=== PATIENT | male | born 1940 | race Caucasian/White ===

== ENCOUNTER 2016-12-23 13:57 | Inpatient (IN) | payer MEDICARE ==
[~2016-12-23] VITALS: Ht 172.7 cm; Wt 93.9 kg
[2016-12-23] MEDS ORDERED: SODIUM CHLORIDE 0.9% 1,000 ML IV ONE (14:49)
[2016-12-23] MEDS ORDERED: VANCOMYCIN PER PHARMACY MC ONE (15:00)
[2016-12-23] MEDS ORDERED: SODIUM CHLORIDE FLUSH 10ML SYR IVF ONE (15:00)
[2016-12-23 15:25] LABS: HEMATOCRIT 46.6 % (39.2-51.8); HEMOGLOBIN 15.2 g/dL (13.7-18.0); WHITE BLOOD COUNT 8.7 x10^3/uL (3.4-10)
[2016-12-23] MEDS ORDERED: VANCOMYCIN 1,900 MG in SODIUM CHLORIDE 0.9% 250 ML IV ONE (15:30)
[2016-12-23 15:34] LABS: ASPARTATE AMINO TRANSFERASE 21 U/L (15-37); BLOOD UREA NITROGEN 19 mg/dL (7-18)
[2016-12-23] MEDS ORDERED: YEAS680T PO (16:51)
[2016-12-23] MEDS ORDERED: ASPI-496 PO (16:51)
[2016-12-23] MEDS ORDERED: ATOR80TA PO (16:52)
[2016-12-23] MEDS ORDERED: HYDR25TA11 PO (16:52)
[2016-12-23] MEDS ORDERED: METO25TA35 PO (16:52)
[2016-12-23] MEDS ORDERED: CLOP75TA PO (16:52)
[2016-12-23] MEDS ORDERED: CITA20TA5 PO (16:52)
[2016-12-23] MEDS ORDERED: SODIUM CHLORIDE FLUSH 10ML SYR IVF PRN (17:30)
[2016-12-23] MEDS ORDERED: HYDROcodone/APAP 5/325 TABLET PO PRN (18:00)
[2016-12-23] MEDS ORDERED: ONDANSETRON ODT 4 MG PO PRN (18:00)
[2016-12-23] MEDS ORDERED: LABETALOL 5MG/ML, 20ML IVPush PRN (18:00)
[2016-12-23] MEDS ORDERED: POLYETHYLENE GLYCOL 17 GM PACKET PO PRN (18:00)
[2016-12-23] MEDS ORDERED: ONDANSETRON 2MG/ML, 2ML IVPush PRN (18:00)
[2016-12-23] MEDS: LINEZOLID PMX 600MG/300ML 300 ML IV SCH (20:25)
[2016-12-23] MEDS: ATORVASTATIN 80 MG TABLET PO SCH (20:25)
[2016-12-23] MEDS: ENOXAPARIN 40 MG/0.4 ML SQ SCH (20:26)
[2016-12-23 20:37] VITALS: BP 149/93
[2016-12-24 00:33] VITALS: BP 117/76
[2016-12-24] MEDS ORDERED: FLU VACC QS2017-18 (36MOS+) UP/PF 0.5 ML IM-VACC ONE (02:00)
[2016-12-24] MEDS ORDERED: PNEUMOCOCCAL 23 VACCINE IM-VACC ONE (02:00)
[2016-12-24] MEDS: LINEZOLID PMX 600MG/300ML 300 ML IV SCH ×3 (05:30→19:32)
[2016-12-24 07:25] VITALS: BP 107/75
[2016-12-24] MEDS: SENNA/DOCUSATE TABLET PO SCH (09:00)
[2016-12-24] MEDS: CITALOPRAM 20 MG TABLET PO SCH (09:10)
[2016-12-24] MEDS: ASPIRIN 81 MG TABLET EC PO SCH (09:10)
[2016-12-24] MEDS: METOPROLOL TARTRATE 25 MG TABLET PO SCH (09:10)
[2016-12-24] MEDS: CLOPIDOGREL 75 MG TABLET PO SCH (09:10)
[2016-12-24 10:15] LABS: HEMOGLOBIN 13.9 g/dL (13.7-18.0); WHITE BLOOD COUNT 8.4 x10^3/uL (3.4-10)
[2016-12-24 10:26] LABS: ASPARTATE AMINO TRANSFERASE 21 U/L (15-37); BLOOD UREA NITROGEN 15 mg/dL (7-18)
[2016-12-24 14:35] VITALS: BP 108/67
[2016-12-24 19:52] VITALS: BP 109/69
[2016-12-24] MEDS: ATORVASTATIN 80 MG TABLET PO SCH (21:46)
[2016-12-24] MEDS: ENOXAPARIN 40 MG/0.4 ML SQ SCH (21:46)
[2016-12-24] MEDS: SILVER SULF. CRM 1%, 400GM TP SCH (21:46)
[2016-12-24] MEDS: DIPHENHYDRAMINE 25 MG CAPSULE PO PRN (22:19)
[2016-12-25 03:31] VITALS: BP 106/62
[2016-12-25] MEDS: LINEZOLID PMX 600MG/300ML 300 ML IV SCH ×2 (05:45→18:37)
[2016-12-25 06:04] LABS: HEMATOCRIT 42.7 % (39.2-51.8); WHITE BLOOD COUNT 7.3 x10^3/uL (3.4-10)
[2016-12-25 06:28] LABS: BLOOD UREA NITROGEN 15 mg/dL (7-18)
[2016-12-25 08:50] VITALS: BP 115/70
[2016-12-25] MEDS: SENNA/DOCUSATE TABLET PO SCH (09:00)
[2016-12-25] MEDS: CLOPIDOGREL 75 MG TABLET PO SCH (11:02)
[2016-12-25] MEDS: CITALOPRAM 20 MG TABLET PO SCH (11:02)
[2016-12-25] MEDS: METOPROLOL TARTRATE 25 MG TABLET PO SCH (11:02)
[2016-12-25] MEDS: ASPIRIN 81 MG TABLET EC PO SCH (11:02)
[2016-12-25] MEDS: SILVER SULF. CRM 1%, 400GM TP SCH (11:03)
[2016-12-25 14:03] VITALS: BP 94/60
[2016-12-25 19:50] VITALS: BP 100/66
[2016-12-25] MEDS: ENOXAPARIN 40 MG/0.4 ML SQ SCH (21:38)
[2016-12-25] MEDS: DIPHENHYDRAMINE 25 MG CAPSULE PO PRN (21:38)
[2016-12-25] MEDS: ATORVASTATIN 80 MG TABLET PO SCH (21:38)
[2016-12-26 02:45] VITALS: BP 106/64
[2016-12-26] MEDS: LINEZOLID PMX 600MG/300ML 300 ML IV SCH (06:04)
[2016-12-26 07:27] VITALS: BP 102/66
[2016-12-26] MEDS: CLOPIDOGREL 75 MG TABLET PO SCH (08:03)
[2016-12-26] MEDS: ASPIRIN 81 MG TABLET EC PO SCH (08:03)
[2016-12-26] MEDS: SENNA/DOCUSATE TABLET PO SCH (08:03)
[2016-12-26] MEDS: CITALOPRAM 20 MG TABLET PO SCH (08:03)
[2016-12-26] MEDS: METOPROLOL TARTRATE 25 MG TABLET PO SCH (08:03)
[2016-12-26 13:33] VITALS: BP 105/68
[2016-12-26] MEDS: CEFAZOLIN PMX 2GM/50ML 50 ML IV SCH ×2 (14:58→22:17)
[2016-12-26 20:05] VITALS: BP 109/73
[2016-12-26] MEDS: ENOXAPARIN 40 MG/0.4 ML SQ SCH (22:17)
[2016-12-26] MEDS: ATORVASTATIN 80 MG TABLET PO SCH (22:17)
[2016-12-27 03:40] VITALS: BP 105/53
[2016-12-27 05:27] LABS: HEMATOCRIT 40.8 % (39.2-51.8); HEMOGLOBIN 13.4 g/dL (13.7-18.0); WHITE BLOOD COUNT 7.7 x10^3/uL (3.4-10)
[2016-12-27 05:48] LABS: ASPARTATE AMINO TRANSFERASE 19 U/L (15-37); BLOOD UREA NITROGEN 16 mg/dL (7-18)
[2016-12-27] MEDS: CEFAZOLIN PMX 2GM/50ML 50 ML IV SCH ×3 (06:05→22:24)
[2016-12-27 06:47] VITALS: BP 127/70
[2016-12-27] MEDS: ASPIRIN 81 MG TABLET EC PO SCH (08:15)
[2016-12-27] MEDS: CITALOPRAM 20 MG TABLET PO SCH (08:15)
[2016-12-27] MEDS: SENNA/DOCUSATE TABLET PO SCH (08:16)
[2016-12-27] MEDS: METOPROLOL TARTRATE 25 MG TABLET PO SCH (08:16)
[2016-12-27] MEDS: CLOPIDOGREL 75 MG TABLET PO SCH (08:16)
[2016-12-27 13:19] VITALS: BP 124/86
[2016-12-27] MEDS: DIPHENHYDRAMINE 25 MG CAPSULE PO PRN ×2 (13:50→20:35)
[2016-12-27 18:44] VITALS: BP 111/73
[2016-12-27] MEDS: ATORVASTATIN 80 MG TABLET PO SCH (20:26)
[2016-12-27] MEDS: ENOXAPARIN 40 MG/0.4 ML SQ SCH (20:27)
[2016-12-28 02:29] VITALS: BP 122/82
[2016-12-28 05:51] LABS: HEMATOCRIT 42.1 % (39.2-51.8); HEMOGLOBIN 13.7 g/dL (13.7-18.0); WHITE BLOOD COUNT 7.4 x10^3/uL (3.4-10)
[2016-12-28 06:00] LABS: BLOOD UREA NITROGEN 18 mg/dL (7-18)
[2016-12-28] MEDS: CEFAZOLIN PMX 2GM/50ML 50 ML IV SCH ×3 (06:19→22:04)
[2016-12-28 06:59] VITALS: BP 114/81
[2016-12-28] MEDS: ASPIRIN 81 MG TABLET EC PO SCH (08:36)
[2016-12-28] MEDS: CITALOPRAM 20 MG TABLET PO SCH (08:36)
[2016-12-28] MEDS: METOPROLOL TARTRATE 25 MG TABLET PO SCH (08:36)
[2016-12-28] MEDS: CLOPIDOGREL 75 MG TABLET PO SCH (08:37)
[2016-12-28] MEDS: SENNA/DOCUSATE TABLET PO SCH (08:37)
[2016-12-28 13:29] VITALS: BP 115/74
[2016-12-28 19:27] VITALS: BP 135/88
[2016-12-28] MEDS: ATORVASTATIN 80 MG TABLET PO SCH (22:04)
[2016-12-28] MEDS: ENOXAPARIN 40 MG/0.4 ML SQ SCH (22:04)
[2016-12-28] MEDS: DIPHENHYDRAMINE 25 MG CAPSULE PO PRN (22:11)
[2016-12-29 01:38] VITALS: BP 115/74
[2016-12-29 05:58] LABS: HEMATOCRIT 42.8 % (39.2-51.8); HEMOGLOBIN 14.1 g/dL (13.7-18.0); WHITE BLOOD COUNT 6.7 x10^3/uL (3.4-10)
[2016-12-29 06:05] LABS: BLOOD UREA NITROGEN 21 mg/dL (7-18)
[2016-12-29] MEDS: CEFAZOLIN PMX 2GM/50ML 50 ML IV SCH ×3 (06:19→22:48)
[2016-12-29 07:11] VITALS: BP 104/70
[2016-12-29] MEDS: SENNA/DOCUSATE TABLET PO SCH (09:00)
[2016-12-29] MEDS: ASPIRIN 81 MG TABLET EC PO SCH (09:25)
[2016-12-29] MEDS: CITALOPRAM 20 MG TABLET PO SCH (09:25)
[2016-12-29] MEDS: CLOPIDOGREL 75 MG TABLET PO SCH (09:26)
[2016-12-29] MEDS: METOPROLOL TARTRATE 25 MG TABLET PO SCH (09:26)
[2016-12-29 15:31] VITALS: BP 130/70
[2016-12-29 19:16] VITALS: BP 117/78
[2016-12-29] MEDS: ATORVASTATIN 80 MG TABLET PO SCH (22:48)
[2016-12-29] MEDS: ENOXAPARIN 40 MG/0.4 ML SQ SCH (22:48)
[2016-12-30 02:08] VITALS: BP 103/68
[2016-12-30 06:25] LABS: HEMATOCRIT 41.9 % (39.2-51.8); HEMOGLOBIN 13.9 g/dL (13.7-18.0); WHITE BLOOD COUNT 7.9 x10^3/uL (3.4-10)
[2016-12-30 06:49] LABS: ASPARTATE AMINO TRANSFERASE 23 U/L (15-37); BLOOD UREA NITROGEN 18 mg/dL (7-18)
[2016-12-30 06:55] VITALS: BP 103/71
[2016-12-30] MEDS ORDERED: AMOX1TAB64 PO (07:31)
[2016-12-30] MEDS: CITALOPRAM 20 MG TABLET PO SCH (07:34)
[2016-12-30] MEDS: CLOPIDOGREL 75 MG TABLET PO SCH (07:34)
[2016-12-30] MEDS: METOPROLOL TARTRATE 25 MG TABLET PO SCH (07:34)
[2016-12-30] MEDS: CEFAZOLIN PMX 2GM/50ML 50 ML IV SCH ×2 (07:34→15:34)
[2016-12-30] MEDS: ASPIRIN 81 MG TABLET EC PO SCH (07:34)
[2016-12-30] MEDS: SENNA/DOCUSATE TABLET PO SCH (08:19)
[2016-12-30 14:51] VITALS: BP 113/80
== END 2016-12-30 18:49 | disposition home health service (06) | DRG 602 ==
LOC: ED 17:01 → EDIP 17:02 → 3NE 18:24
PROVIDERS: ADMIT Hospitalist; ATTEND Hospitalist
DX: L03.115 Cellulitis of right lower limb (principal); E43 Unspecified severe protein-calorie malnutrition; L03.116 Cellulitis of left lower limb; E66.01 Morbid (severe) obesity due to excess calories; E78.00 Pure hypercholesterolemia, unspecified; I10 Essential (primary) hypertension; Z96.641 Presence of right artificial hip joint; B95.61 Methicillin susceptible Staphylococcus aureus infection as the cause of diseases classified elsewhere; I25.10 Atherosclerotic heart disease of native coronary artery without angina pectoris; Z85.46 Personal history of malignant neoplasm of prostate; Z86.14 Personal history of Methicillin resistant Staphylococcus aureus infection; Z68.31 Body mass index [BMI] 31.0-31.9, adult; Z98.1 Arthrodesis status; Z23 Encounter for immunization
CPT/HCPCS: 36415; 71010; 80048; 80053; 81003; 82040; 83605; 85025; 87040; 87070; 87075; 87077; 87186; 87205; 90686; 90732; 93306; 93922; 93970; 96365; J0690; J1650; J2020; J2405; J3370; 29580-GP; J7030; J7050; Q0163

== ENCOUNTER → 2017-01-09 | Outpatient (CLI) | payer MEDICARE ==
[~2017-01-09] MED LIST: AMOX1TAB64 PO; ASPI-496 PO; ATOR80TA PO; CITA20TA5 PO; CLOP75TA PO; HYDR25TA11 PO; METO25TA35 PO; YEAS680T PO
== END | disposition home or self-care (01) ==
LOC: WOUND 07:45
PROVIDERS: ATTEND Podiatrist Foot & Ankle Surgery
DX: I83.012 Varicose veins of right lower extremity with ulcer of calf (principal); L97.211 Non-pressure chronic ulcer of right calf limited to breakdown of skin; L97.821 Non-pressure chronic ulcer of other part of left lower leg limited to breakdown of skin; I25.10 Atherosclerotic heart disease of native coronary artery without angina pectoris; Z86.14 Personal history of Methicillin resistant Staphylococcus aureus infection; E66.01 Morbid (severe) obesity due to excess calories; Z68.31 Body mass index [BMI] 31.0-31.9, adult; Z85.46 Personal history of malignant neoplasm of prostate; E78.00 Pure hypercholesterolemia, unspecified
CPT/HCPCS: 29581; G0463; WOU0463

== ENCOUNTER → 2017-01-23 | Outpatient (CLI) | payer MEDICARE | END | disposition home or self-care (01) | LOC: WOUND 14:00 | PROVIDERS: ATTEND Podiatrist Foot & Ankle Surgery | DX: I87.2 Venous insufficiency (chronic) (peripheral) (principal); L97.811 Non-pressure chronic ulcer of other part of right lower leg limited to breakdown of skin; L97.821 Non-pressure chronic ulcer of other part of left lower leg limited to breakdown of skin; I25.10 Atherosclerotic heart disease of native coronary artery without angina pectoris; E78.00 Pure hypercholesterolemia, unspecified; I10 Essential (primary) hypertension; E66.01 Morbid (severe) obesity due to excess calories; I25.2 Old myocardial infarction; F12.10 Cannabis abuse, uncomplicated; Z68.31 Body mass index [BMI] 31.0-31.9, adult; Z85.46 Personal history of malignant neoplasm of prostate; Z96.641 Presence of right artificial hip joint; Z98.1 Arthrodesis status | CPT/HCPCS: 29581 ==

== ENCOUNTER → 2017-01-31 | Outpatient (CLI) | payer MEDICARE | END | disposition home or self-care (01) | LOC: WOUND 10:00 | PROVIDERS: ATTEND Family Medicine | DX: I87.2 Venous insufficiency (chronic) (peripheral) (principal); L97.811 Non-pressure chronic ulcer of other part of right lower leg limited to breakdown of skin; I25.10 Atherosclerotic heart disease of native coronary artery without angina pectoris; E66.01 Morbid (severe) obesity due to excess calories; I10 Essential (primary) hypertension; I25.2 Old myocardial infarction; Z96.641 Presence of right artificial hip joint; E78.00 Pure hypercholesterolemia, unspecified; Z86.14 Personal history of Methicillin resistant Staphylococcus aureus infection; E43 Unspecified severe protein-calorie malnutrition; L03.116 Cellulitis of left lower limb; F12.10 Cannabis abuse, uncomplicated; Z68.31 Body mass index [BMI] 31.0-31.9, adult; Z85.46 Personal history of malignant neoplasm of prostate | CPT/HCPCS: 99213; G0463; WOU0463 ==

== ENCOUNTER → 2017-02-21 | Outpatient (CLI) | payer MEDICARE | END | disposition home or self-care (01) | LOC: CVU 07:56 | PROVIDERS: ATTEND Nurse Practitioner Primary Care | DX: I70.203 Unspecified atherosclerosis of native arteries of extremities, bilateral legs (principal); L03.116 Cellulitis of left lower limb; L03.115 Cellulitis of right lower limb; I25.10 Atherosclerotic heart disease of native coronary artery without angina pectoris; I25.2 Old myocardial infarction; Z85.46 Personal history of malignant neoplasm of prostate; Z95.5 Presence of coronary angioplasty implant and graft | CPT/HCPCS: 93922; 93925 ==

== ENCOUNTER 2018-05-08 12:34 | Inpatient (IN) | payer MEDICARE ==
[~2018-05-08] VITALS: Ht 175.3 cm; Wt 106.2 kg
[~2018-05-08 12:34] MED LIST changes: -CITA20TA5 PO; +CITA20TA6 PO; +ERGO500017 PO; +POLY17PO5 PO; -YEAS680T PO; +YEAS680T2 PO
[2018-05-08] MEDS ORDERED: SODIUM CHLORIDE FLUSH 10ML SYR IVF ONE (13:30)
[2018-05-08 13:55] LABS: BASOPHILS # (AUTO) 0.01 x10^3/uL (0-0.1); BASOPHILS % (AUTO) 0 % (0-1); EOSINOPHILS # (AUTO) 0.39 x10^3/uL (0-0.4); EOSINOPHILS % (AUTO) 3 % (1-7); LYMPHOCYTES % (AUTO) 2 % (22-44); MD NO; MEAN CORPUSCULAR HEMOGLOBIN 26.2 pg (27.5-34.5); MEAN CORPUSCULAR HGB CONC 32.8 g/dL (33.2-36.2); MEAN CORPUSCULAR VOLUME 79.7 fL (81-97); MEAN PLATELET VOLUME 8.7 fL (7.4-10.4); MONOCYTES # (AUTO) 0.94 x10^3/uL (0.2-0.8); MONOCYTES % (AUTO) 8 % (2-9); NEUTROPHILS # (AUTO) 10.35 x10^3/uL (1.8-6.8); NEUTROPHILS % (AUTO) 87 % (42-75); PLATELET COUNT 274 x10^3/uL (130-400); RED BLOOD COUNT 3.75 x10^6/uL (4.38-5.82); RED CELL DISTRIBUTION WIDTH 21.4 % (9.4-14.8)
[2018-05-08 14:07] LABS: INTERNATIONAL NORMALIZED RATIO 1.28 (0.93-1.1); PROTHROMBIN TIME 13.4 Seconds (9.6-11.5)
[2018-05-08 14:08] LABS: ALBUMIN 2.1 g/dL (3.4-5.0); ANION GAP 8 mmol/L (5-15); CALCIUM 9.8 mg/dL (8.5-10.1); CHLORIDE 104 mmol/L (98-107)
[2018-05-08 14:13] LABS: ALANINE AMINOTRANSFERASE 80 U/L (12-78); ALKALINE PHOSPHATASE 314 U/L (45-117); BILIRUBIN,TOTAL 0.6 mg/dL (0.2-1.0); CREATININE 1.33 mg/dL (0.7-1.3); TOTAL PROTEIN 7.8 g/dL (6.4-8.2); TROPONIN I < 0.015 ng/mL (0.000-0.045)
[2018-05-08 14:26] LABS: ACETAMINOPHEN < 2 mcg/mL (10-30); SALICYLATE LEVEL < 1.7 mg/dL (2.8-20.0)
[2018-05-08] MEDS ORDERED: ACETAMINOPHEN 500 MG TABLET PO ONE (14:30)
[2018-05-08] MEDS ORDERED: ACETAMINOPHEN 500 MG TABLET ONE (14:32)
[2018-05-08 17:25] LABS: MICROSCOPIC INDICATED
[2018-05-08 17:39] LABS: CULTURE INDICATED? NO
[2018-05-08] MEDS ORDERED: SODIUM CHLORIDE FLUSH 10ML SYR IVF PRN (18:30)
[2018-05-08] MEDS ORDERED: CITA20TA9 PO (19:14)
--- NOTE | 2018-05-08 19:14 | NUR ---
SBAR TO CRISTIANO CONTRERAS VIA TELPHONE
[2018-05-08] MEDS ORDERED: POLYETHYLENE GLYCOL 17 GM PACKET PO PRN (19:30)
[2018-05-08] MEDS ORDERED: BISACODYL 10 MG SUPP PR PRN (19:30)
[2018-05-08] MEDS ORDERED: ONDANSETRON ODT 4 MG PO PRN (19:30)
[2018-05-08 19:31] LABS: HCT (SEDRATE) 28.1 % (39.2-51.8)
--- NOTE | 2018-05-08 19:38 | NUR ---
PT'S BLOOD PRESSURE 84/49 HOSPITALIST AWARE. [facility] NUMNER [phone] LEA
[2018-05-08 19:48] LABS: % IRON SATURATION 10 % (20-55); IRON LEVEL 19 mcg/dL (65-175); TOTAL IRON BINDING CAPACITY 187 mcg/dL (250-450)
[2018-05-08] MEDS ORDERED: SODIUM CHLORIDE 0.9% 1,000ML IVBOLUS ONE (20:00)
[2018-05-08] MEDS ORDERED: VANCOMYCIN PER PHARMACY MC PRN (20:00)
[2018-05-08 20:02] LABS: HIGH-SENSITIVITY CRP > 19.00 mg/dL (0.02-0.30)
[2018-05-08] MEDS ORDERED: PIPERACILLIN/TAZO/PMX 3.375GM 50 ML ONE (20:33)
[2018-05-08] MEDS: PIPERACILLIN/TAZO/PMX 3.375GM 50 ML IV SCH (20:37)
--- NOTE | 2018-05-08 20:37 | NUR ---
PT HAS BEEN UPGRADED TO ICU
--- NOTE | 2018-05-08 20:37 | NUR ---
BOTH BLOOD CULTURES DRAWN BEFORE ABX GIVEN
--- NOTE | 2018-05-08 21:12 | NUR ---
PT BACK FROM CT. PT RESTING. NO ACUTE DISTRESS NOTED. WILL CONTINUE TO MONITOR.
[2018-05-08] MEDS ORDERED: ONDANSETRON ODT 4 MG ONE (21:17)
[2018-05-08] MEDS: SODIUM CHLORIDE 0.9% 1,000 ML IV SCH (21:18)
[2018-05-08] MEDS ORDERED: PHARMACOKINETIC MONITORING MC PRN (22:30)
[2018-05-08] MEDS ORDERED: VANCOMYCIN 1,800 MG in SODIUM CHLORIDE 0.9% 250 ML IV ONE (22:30)
[2018-05-08 22:49] VITALS: BP 113/61
[2018-05-08] MEDS: HEPARIN 5,000 UNITS/ML, 1ML SQ SCH (23:33)
[2018-05-09] MEDS: ACETAMINOPHEN 325 MG TABLET PO PRN ×3 (01:18→20:06)
[2018-05-09] MEDS: PIPERACILLIN/TAZO/PMX 3.375GM 50 ML IV SCH ×4 (01:32→20:05)
[2018-05-09] MEDS: SODIUM CHLORIDE 0.9% 1,000 ML IV SCH ×3 (01:32→20:06)
[2018-05-09] MEDS ORDERED: OMNIPAQUE 350 MG/ML, 100ML BOTTLE ONE (02:25)
[2018-05-09] MEDS ORDERED: NOREPINEPHRINE 4 MG in SODIUM CHLORIDE 0.9% 246 ML IV PRN (03:00)
[2018-05-09] MEDS ORDERED: SODIUM CHLORIDE 0.9% 1,000ML IVBOLUS ONE ×2 (03:00)
[2018-05-09 04:52] LABS: BASOPHILS # (AUTO) 0.01 x10^3/uL (0-0.1); BASOPHILS % (AUTO) 0 % (0-1); EOSINOPHILS # (AUTO) 0.19 x10^3/uL (0-0.4); EOSINOPHILS % (AUTO) 2 % (1-7); LYMPHOCYTES # (AUTO) 0.19 x10^3/uL (1-3.4); LYMPHOCYTES % (AUTO) 2 % (22-44); MD NO; MEAN CORPUSCULAR HEMOGLOBIN 26.3 pg (27.5-34.5); MEAN CORPUSCULAR HGB CONC 32.6 g/dL (33.2-36.2); MEAN CORPUSCULAR VOLUME 80.8 fL (81-97); MEAN PLATELET VOLUME 8.3 fL (7.4-10.4); MONOCYTES % (AUTO) 9 % (2-9); NEUTROPHILS # (AUTO) 11.02 x10^3/uL (1.8-6.8); NEUTROPHILS % (AUTO) 88 % (42-75); PLATELET COUNT 219 x10^3/uL (130-400); RED BLOOD COUNT 3.03 x10^6/uL (4.38-5.82); RED CELL DISTRIBUTION WIDTH 21.6 % (9.4-14.8)
[2018-05-09 04:59] LABS: ALANINE AMINOTRANSFERASE 46 U/L (12-78); ALBUMIN 1.6 g/dL (3.4-5.0); ANION GAP 7 mmol/L (5-15); CALCIUM 8.4 mg/dL (8.5-10.1); CHLORIDE 112 mmol/L (98-107); CREATININE 1.03 mg/dL (0.7-1.3)
[2018-05-09 05:02] LABS: ALKALINE PHOSPHATASE 212 U/L (45-117); TOTAL PROTEIN 6.1 g/dL (6.4-8.2)
[2018-05-09 05:11] LABS: RAPID INFLUENZA A Negative (Negative); RAPID INFLUENZA B Negative (Negative)
[2018-05-09] MEDS: SENNA/DOCUSATE TABLET PO SCH (08:44)
[2018-05-09] MEDS: HEPARIN 5,000 UNITS/ML, 1ML SQ SCH ×2 (08:44→16:57)
[2018-05-09] MEDS ORDERED: TEMPLATE NON-FORMULARY MED. (Clopidogrel Bisulfate** (Clopidogrel**) 75 MG) PO SCH (09:00)
[2018-05-09] MEDS ORDERED: CITALOPRAM 20 MG TABLET PO SCH (09:00)
[2018-05-09] MEDS ORDERED: TEMPLATE NON-FORMULARY MED. (Aspirin** (Aspir 81**) 81 MG) PO SCH (09:00)
[2018-05-09] MEDS ORDERED: METOPROLOL TARTRATE 25 MG TABLET PO SCH (09:00)
[2018-05-09] MEDS ORDERED: ERGOCALCIFEROL 50,000 UNIT CAPSULE PO SCH (09:00)
[2018-05-09 10:56] LABS: CLOSTRIDIUM DIFFICILE ANTIGEN NEGATIVE; CLOSTRIDIUM DIFFICILE TOXIN NEGATIVE (Negative)
[2018-05-09] MEDS: VANCOMYCIN 1,800 MG in SODIUM CHLORIDE 0.9% 250 ML IV SCH (17:46)
[2018-05-09 19:53] VITALS: BP 106/78
[2018-05-09] MEDS ORDERED: IBUPROFEN 200 MG TABLET PO ONE (23:00)
[2018-05-10 00:31] VITALS: BP 95/59
[2018-05-10] MEDS: HEPARIN 5,000 UNITS/ML, 1ML SQ SCH ×3 (01:36→19:48)
[2018-05-10] MEDS: PIPERACILLIN/TAZO/PMX 3.375GM 50 ML IV SCH ×4 (01:36→19:53)
[2018-05-10 03:31] VITALS: BP 94/65
[2018-05-10] MEDS: SODIUM CHLORIDE 0.9% 1,000 ML IV SCH ×2 (05:10→08:45)
[2018-05-10 08:30] LABS: MEAN CORPUSCULAR HEMOGLOBIN 25.9 pg (27.5-34.5); MEAN CORPUSCULAR VOLUME 80.9 fL (81-97); MEAN PLATELET VOLUME 8.4 fL (7.4-10.4); PLATELET COUNT 192 x10^3/uL (130-400); RED BLOOD COUNT 3.04 x10^6/uL (4.38-5.82); RED CELL DISTRIBUTION WIDTH 21.8 % (9.4-14.8)
[2018-05-10 08:32] LABS: ALBUMIN 1.5 g/dL (3.4-5.0); ANION GAP 7 mmol/L (5-15); CALCIUM 8.9 mg/dL (8.5-10.1); CHLORIDE 111 mmol/L (98-107)
[2018-05-10 08:39] LABS: ALANINE AMINOTRANSFERASE 46 U/L (12-78); ALKALINE PHOSPHATASE 232 U/L (45-117); BILIRUBIN,TOTAL 1.1 mg/dL (0.2-1.0); CREATININE 1.03 mg/dL (0.7-1.3); TOTAL PROTEIN 5.8 g/dL (6.4-8.2)
[2018-05-10] MEDS: SENNA/DOCUSATE TABLET PO SCH (09:00)
[2018-05-10] MEDS ORDERED: ALBUMIN HUMAN 25% 100 ML IV SCH (09:00)
[2018-05-10 09:06] LABS: BASOPHILS % (AUTO) 0 % (0-1); EOSINOPHILS # (AUTO) 0.77 x10^3/uL (0-0.4); EOSINOPHILS % (AUTO) 6 % (1-7); LYMPHOCYTES # (AUTO) 0.14 x10^3/uL (1-3.4); LYMPHOCYTES % (AUTO) 1 % (22-44); MD SCAN; MONOCYTES # (AUTO) 0.69 x10^3/uL (0.2-0.8); MONOCYTES % (AUTO) 6 % (2-9); NEUTROPHILS # (AUTO) 10.91 x10^3/uL (1.8-6.8); NEUTROPHILS % (AUTO) 87 % (42-75)
[2018-05-10] MEDS: ALBUMIN HUMAN 25% 100 ML IV SCH ×3 (09:36→19:48)
[2018-05-10] MEDS: ACETAMINOPHEN 325 MG TABLET PO PRN ×2 (12:04→21:07)
[2018-05-10] MEDS: VANCOMYCIN 1,800 MG in SODIUM CHLORIDE 0.9% 250 ML IV SCH (12:05)
[2018-05-10 21:05] VITALS: BP 113/83
[2018-05-11] MEDS: HEPARIN 5,000 UNITS/ML, 1ML SQ SCH ×3 (01:00→16:27)
[2018-05-11 01:35] VITALS: BP 95/57
[2018-05-11] MEDS: PIPERACILLIN/TAZO/PMX 3.375GM 50 ML IV SCH ×4 (02:22→22:06)
[2018-05-11] MEDS: ALBUMIN HUMAN 25% 100 ML IV SCH ×3 (03:03→18:11)
[2018-05-11] MEDS: VANCOMYCIN 1,800 MG in SODIUM CHLORIDE 0.9% 250 ML IV SCH ×2 (06:00→12:33)
[2018-05-11 07:05] VITALS: BP 127/77
[2018-05-11] MEDS: SENNA/DOCUSATE TABLET PO SCH (09:00)
[2018-05-11] MEDS ORDERED: LIDOCAINE-MPF 1%, 5ML ONE (09:20)
[2018-05-11] MEDS ORDERED: FENTANYL PF 100 MCG/2ML ONE ×2 (09:24)
[2018-05-11] MEDS ORDERED: NALOXONE 1 MG/ML, 2ML ONE (09:25)
[2018-05-11] MEDS ORDERED: MIDAZOLAM 1 MG/ML, 5ML ONE (09:25)
[2018-05-11] MEDS ORDERED: FLUMAZENIL 0.1 MG/1 ML, 5ML ONE (09:25)
[2018-05-11 10:22] VITALS: BP 132/82
[2018-05-11] MEDS: SODIUM CHLORIDE 0.9% 1,000 ML IV SCH (10:28)
[2018-05-11] MEDS: MORPHINE SULFATE 4 MG/ML, 1ML IVPush PRN ×2 (10:57→14:46)
[2018-05-11 15:22] VITALS: BP 141/80
[2018-05-11 19:10] VITALS: BP 151/67
[2018-05-11] MEDS ORDERED: ACETAMINOPHEN 1,000 MG/100 ML IV IVPB ONE (22:00)
[2018-05-11] MEDS ORDERED: ACETAMINOPHEN 100 ML IVPB ONE (22:00)
[2018-05-12 01:15] VITALS: BP 104/66
[2018-05-12] MEDS: HEPARIN 5,000 UNITS/ML, 1ML SQ SCH ×2 (01:23→08:27)
[2018-05-12] MEDS: ALBUMIN HUMAN 25% 100 ML IV SCH (03:00)
[2018-05-12] MEDS: MORPHINE SULFATE 4 MG/ML, 1ML IVPush PRN ×6 (03:00→19:28)
[2018-05-12] MEDS: SODIUM CHLORIDE 0.9% 1,000 ML IV SCH (03:00)
[2018-05-12] MEDS: PIPERACILLIN/TAZO/PMX 3.375GM 50 ML IV SCH ×2 (04:00→10:30)
[2018-05-12 05:53] LABS: MEAN CORPUSCULAR HEMOGLOBIN 25.4 pg (27.5-34.5); MEAN CORPUSCULAR HGB CONC 31.9 g/dL (33.2-36.2); MEAN CORPUSCULAR VOLUME 79.7 fL (81-97); MEAN PLATELET VOLUME 8.6 fL (7.4-10.4); PLATELET COUNT 172 x10^3/uL (130-400); RED BLOOD COUNT 2.78 x10^6/uL (4.38-5.82); RED CELL DISTRIBUTION WIDTH 21.2 % (9.4-14.8)
[2018-05-12 06:07] LABS: ANION GAP 10 mmol/L (5-15); CALCIUM 9.6 mg/dL (8.5-10.1); CHLORIDE 115 mmol/L (98-107)
[2018-05-12 06:09] LABS: CREATININE 1.09 mg/dL (0.7-1.3)
[2018-05-12 06:20] LABS: BASOPHILS % (AUTO) 0 % (0-1); EOSINOPHILS # (AUTO) 0.18 x10^3/uL (0-0.4); EOSINOPHILS % (AUTO) 2 % (1-7); LYMPHOCYTES # (AUTO) 0.15 x10^3/uL (1-3.4); LYMPHOCYTES % (AUTO) 2 % (22-44); MD SCAN; MONOCYTES # (AUTO) 0.59 x10^3/uL (0.2-0.8); MONOCYTES % (AUTO) 7 % (2-9); NEUTROPHILS # (AUTO) 7.86 x10^3/uL (1.8-6.8); NEUTROPHILS % (AUTO) 90 % (42-75)
[2018-05-12] MEDS: SENNA/DOCUSATE TABLET PO SCH (08:27)
[2018-05-12] MEDS ORDERED: ACETAMINOPHEN 1,000 MG/100 ML IV IVPB PRN (08:30)
[2018-05-12 09:00] VITALS: BP 150/80
[2018-05-12] MEDS ORDERED: ACETAMINOPHEN 650 MG SUPP PR PRN (09:00)
[2018-05-12] MEDS ORDERED: [UNRECOGNIZED DRUG - REMARK] MC SCH (09:00)
[2018-05-12] MEDS ORDERED: POTASSIUM CHLORIDE 20 MEQ in SODIUM CHLORIDE 0.9% 250 ML IV ONE (09:00)
[2018-05-12] MEDS ORDERED: ACETAMINOPHEN 325 MG TABLET PO PRN ×2 (09:19→09:21)
[2018-05-12] MEDS ORDERED: ACETAMINOPHEN 100 ML IVPB ONE ×2 (09:30)
[2018-05-12] MEDS ORDERED: FUROSEMIDE 20 MG/2 ML IV ONE (12:00)
[2018-05-12 12:30] VITALS: BP 107/68
[2018-05-12 12:50] VITALS: BP 116/75
[2018-05-12] MEDS: VANCOMYCIN 1,800 MG in SODIUM CHLORIDE 0.9% 250 ML IV SCH (12:57)
[2018-05-12 14:45] VITALS: BP 123/79
[2018-05-12] MEDS ORDERED: ATROPINE OPHTH SOLN 1%, 2ML BC PRN (15:00)
[2018-05-12] MEDS ORDERED: PROCHLORPERAZINE 5 MG/ML, 2ML IVPush PRN (15:00)
[2018-05-12] MEDS ORDERED: HALOPERIDOL 0.5 MG TABLET PO PRN (15:00)
[2018-05-12] MEDS ORDERED: HALOPERIDOL 2 MG/ML ORAL SOL PO PRN ×2 (15:00)
[2018-05-12] MEDS ORDERED: SCOPOLAMINE PATCH, 1.5MG PATCH.TD72 TD SCH (15:00)
[2018-05-12] MEDS ORDERED: LORazepam INTENSOL 2 MG/ML SL PRN (15:00)
[2018-05-12] MEDS ORDERED: MORPHINE SULFATE 4 MG/ML, 1ML IVPush PRN (15:00)
[2018-05-12] MEDS ORDERED: SCOPOLAMINE PATCH, 1.5MG PATCH.TD72 TD PRN (15:00)
[2018-05-12] MEDS: LORazepam 2 MG/ML, 1ML IVPush PRN ×5 (15:05→22:00)
== END 2018-05-13 03:52 | disposition expired | DRG 853 ==
LOC: ED 14:09 → EDIP 18:13 → CCU 21:57 → 3NE 05-10 16:25 → 3NW 05-11 09:50
PROVIDERS: ADMIT Internal Medicine; ATTEND Internal Medicine
PROC: 07BH3ZX Excision of Right Inguinal Lymphatic, Percutaneous Approach, Diagnostic (ICD-10-PCS; principal; 2018-05-11)
PROC: 30233N1 Transfusion of Nonautologous Red Blood Cells into Peripheral Vein, Percutaneous Approach (ICD-10-PCS; 2018-05-12)
DX: A41.9 Sepsis, unspecified organism (principal); E43 Unspecified severe protein-calorie malnutrition; G93.41 Metabolic encephalopathy; C85.90 Non-Hodgkin lymphoma, unspecified, unspecified site; E87.1 Hypo-osmolality and hyponatremia; L03.119 Cellulitis of unspecified part of limb; N39.0 Urinary tract infection, site not specified; D50.9 Iron deficiency anemia, unspecified; D63.8 Anemia in other chronic diseases classified elsewhere; E55.9 Vitamin D deficiency, unspecified; E78.00 Pure hypercholesterolemia, unspecified; E78.5 Hyperlipidemia, unspecified; F32.9 Major depressive disorder, single episode, unspecified; F41.9 Anxiety disorder, unspecified; I10 Essential (primary) hypertension; I25.10 Atherosclerotic heart disease of native coronary artery without angina pectoris; I25.2 Old myocardial infarction; I70.202 Unspecified atherosclerosis of native arteries of extremities, left leg; K40.90 Unilateral inguinal hernia, without obstruction or gangrene, not specified as recurrent; K80.20 Calculus of gallbladder without cholecystitis without obstruction; M41.9 Scoliosis, unspecified; R13.10 Dysphagia, unspecified; Z51.5 Encounter for palliative care; Z66 Do not resuscitate; Z85.46 Personal history of malignant neoplasm of prostate; Z87.440 Personal history of urinary (tract) infections; Z90.79 Acquired absence of other genital organ(s); Z96.641 Presence of right artificial hip joint; Z68.34 Body mass index [BMI] 34.0-34.9, adult
CPT/HCPCS: 36415; 38505; 70450; 71045; 74177; 76700; 76942; 80048; 80053; 80074; 80202; 80307; 80329; 81001; 82140; 82728; 83540; 83550; 83605; 83615; 84484; 85025; 85610; 85651; 85730; 86141; 86850; 86900; 86923; 87040; 87081; 87324; 87400; 88184; 88185; 88305; 88312; 88341; 88342; 93005; 96360; G0378; J0131; J1644; J2250; J2543; J3010; J3370; J3480; P9047; Q0162; Q9967; 92523-GN; G0480; J1940; J2060; J2310; J7030; J7050; P9016